=== PATIENT | male | born 1995 | race Caucasian/White ===

== ENCOUNTER 2017-04-10 01:06 | Emergency (ER) | payer MEDICAID, OTHER ==
[~2017-04-10] VITALS: Ht 182.9 cm; Wt 94.0 kg
[~2017-04-10 01:06] MED LIST: HYDR1TAB PO; IBUP-1051 PO
[2017-04-10 03:52] VITALS: BP 125/71
== END 2017-04-10 03:54 | disposition home or self-care (01) ==
LOC: ER 01:07
DX: S50.11XA Contusion of right forearm, initial encounter (principal); S60.211A Contusion of right wrist, initial encounter; Z79.899 Other long term (current) drug therapy; X58.XXXA Exposure to other specified factors, initial encounter; Y93.71 Activity, boxing; Y92.89 Other specified places as the place of occurrence of the external cause; Y99.8 Other external cause status
CPT/HCPCS: 73090; 73110; 99284

== ENCOUNTER 2020-02-08 09:39 | Emergency (ER) | payer SELFPAY ==
[~2020-02-08] VITALS: Ht 182.9 cm; Wt 104.5 kg
[2020-02-08 09:42] VITALS: BP 142/96
[2020-02-08] MEDS ORDERED: HYDROcodone/acetaminophen 5mg/325mg tablet PO ONE (10:10)
[2020-02-08] MEDS ORDERED: ACET-2006 PO (10:28)
[2020-02-08] MEDS ORDERED: L. R1CAP4 PO (10:28)
[2020-02-08] MEDS ORDERED: CHLO473M3 PO (10:28)
[2020-02-08] MEDS ORDERED: CLIN150C2 PO (10:28)
== END 2020-02-08 10:43 | disposition home or self-care (01) ==
LOC: ER 09:39
DX: K08.89 Other specified disorders of teeth and supporting structures (principal); Z79.899 Other long term (current) drug therapy
CPT/HCPCS: 99283

== ENCOUNTER 2020-07-01 22:28 | Emergency (ER) | payer SELFPAY ==
[~2020-07-01] VITALS: Ht 185.4 cm; Wt 100.0 kg
[~2020-07-01 22:28] MED LIST changes: +CHLO473M3 PO; +L. R1CAP4 PO
[2020-07-01 22:38] VITALS: BP 129/88
== END 2020-07-02 00:56 | disposition left against medical advice (07) ==
LOC: ER 22:29
DX: R51.9 Headache, unspecified (principal); Z53.21 Procedure and treatment not carried out due to patient leaving prior to being seen by health care provider

== ENCOUNTER 2024-11-30 18:02 | Emergency (ER) | payer SELFPAY ==
[~2024-11-30] VITALS: Ht 177.8 cm; Wt 84.1 kg
[~2024-11-30 18:02] MED LIST changes: +CHLO473M13 PO; -CHLO473M3 PO
[2024-11-30] MEDS ORDERED: IBUP-864 PO (18:23)
--- NOTE | 2024-11-30 18:24 | Physician Documentation ---
History of Present Illness ~ Chief Complaint: Knee Pain Stated Complaint: R KNEE PAIN Time Seen by MD: 18:11 Primary Medical Doctor: NONE Source: patient Mode of Arrival: POV Exam Limitations: no limitations HPI 29-year-old male with complaints of right knee injury using crutches that occurred yesterday. Patient was running chasing his daughter and twisted noticed some pain with movement minimal weight-bearing activity tolerated. Patient states the x-ray at [facility] was negative for any osseous abnormality including fracture. Patient states the swelling has continued throughout today. No other associated symptoms Tetanus witin 5 years: Yes Medication Reconciliation Allergies: Coded Allergies: No Known Allergies (Unverified , 11/30/24) Scheduled Chlorhexidine Gluconate (Periogard), 15 ML PO Q12H Hydrocodone/Acetaminophen (Vicodin 5-500 Tablet), 1 TAB PO Q6H Ibuprofen* (Motrin*), 800 MG PO Q8H L. Rhamnosus GG/Inulin (Culturelle Probiotics Capsule), 1 CAP PO Q12H PRN Past Medical History Past Medical History: No Pertinent History Past Surgical History: no surgical history Alcohol Use: None Drug Use: none Lives with: Family Lives In: Home Occupation: employed Review of Systems All Other Systems at this time: Reviewed and Negative Musculoskeletal: Reports: see HPI Physical Exam Vital Signs: RN Vital Signs have been reviewed: Yes, Temperature: 98.4, Source: Temporal, Heart Rate: 103, Respiratory Rate: 16, BP: 129/86, Pulse Oximetry: 99, Weight: 84.090 Oxygen Flow Rate: 0 General Appearance: alert, WD/WN, no apparent distress Hips: normal inspection, non-tender, normal ROM Legs: normal inspection, non-tender, normal ROM Knees: joint effusion, limited ROM, pain, soft tissue tenderness, swelling Progress Results/Orders Results/Orders Vital Signs 11/30/24 18:04 Temp 98.4 Pulse 103 Resp 16 B/P (MAP) 129/86 Pulse Ox 99 O2 Flow Rate 0 Medical Decision Making Findings Patient already had an x-ray yesterday that was negative for any fractures. Dino frias is already come in with crutches. He is wearing a knee sleeve a knee brace has been provided patient to follow up with primary care anti-inflammatory as prescribed. Discussed effusion no obvious deformity good patellar tracking but limited motion due to pain. Patient to follow up with primary for further treatment and evaluation and potentially an MRI tenderness to the lateral aspect of the knee MCL or LCL due to mechanism of injury Departure Time of Disposition: 18:22 Disposition: 01 HOME / SELF CARE / HOMELESS Impression: Primary Impression: Effusion of knee Additional Impression: Sprain of knee Condition: Stable Discharge Instructions: Acute Knee Pain, Adult, Knee Effusion Additional Instructions: His knee brace and follow up with primary care use crutches and gradually start weight-bearing. Potentially you need an MRI but this needs to be done outpatient with primary care orders. Referrals: NO PRIMARY CARE PROVIDER (PCP) Prescriptions Ibuprofen (Ibu) 800 Mg Tablet 1 TAB PO Q8H for 7 Days, #21 TAB 0 Refills Prov: ROSA MARIA CERAD NP 11/30/24 Education Educated: Patient Educated regarding: diagnosis, treatment, need for follow up Signature Scribe Signature: No scribe Attestation: The note accurately reflects work and decisions made by me.Rosa Maria LEIGH 11/30/24 18:23 ROSA MARIA CERDA NP Nov 30, 2024 18:24
[2024-11-30] MEDS ORDERED: ketorolac trometh 30MG/ML vial 30 MG/ML VIAL IM ONE (18:25)
[2024-11-30] MEDS: ibuprofen tablet 400 MG TABLET PO ONE (18:40)
[2024-11-30 18:43] VITALS: BP 125/84; PULSE 99; RESP 18; TEMP 98.6; O2SAT 99
== END 2024-11-30 18:44 | disposition home or self-care (01) ==
LOC: ER 18:03
DX: S83.8X1A Sprain of other specified parts of right knee, initial encounter (principal); M25.461 Effusion, right knee; X50.1XXA Overexertion from prolonged static or awkward postures, initial encounter; Y93.89 Activity, other specified; Y92.89 Other specified places as the place of occurrence of the external cause; Y99.8 Other external cause status
CPT/HCPCS: 29505; 99284